=== PATIENT | male | born 1935 | race Caucasian/White ===

== ENCOUNTER 2018-05-05 18:40 | Emergency (ER) | END 2018-05-05 21:45 | disposition home or self-care (01) ==

== ENCOUNTER 2018-05-08 10:31 | Emergency (ER) | END 2018-05-08 11:52 | disposition home or self-care (01) ==

== ENCOUNTER 2018-11-16 21:46 | Emergency (ER) | payer MEDICARE, OTHER ==
[~2018-11-16] VITALS: Ht 162.6 cm; Wt 53.6 kg
[~2018-11-16 21:46] MED LIST: HYDR-4011 PO; IBUP-1561 PO
[2018-11-16 21:49] VITALS: Ht 162.6 cm; Wt 53.6 kg
--- NOTE | 2018-11-16 22:45 | ERD ---
ER Documentation Chief Complaint Chief Complaint R hand swelling/pain s/p injury x1 week ago HPI The patient is a 83-year-old male, presenting to the ER because of right wrist and right hand swollen, redness, painful for the last week after he fell. He denies any head injury, facial pain, neck pain, chest pain, dyspnea, abdominal pain, vomiting, dysuria. He does not smoke or drink Past medical history: Hypertension, chronic kidney disease, hypothyroidism, anemia Surgical history: None ROS All systems reviewed and are negative except as per history of present illness. Medications Home Meds Active Scripts Cephalexin* (Keflex*) 500 Mg Capsule, 500 MG PO QID for 7 Days, CAP Prov:CLAUDIA ALCALA MD 11/17/18 Reported Medications Docusate Sodium (Doc-Q-Lace) 100 Mg Capsule, 100 MG PO DAILY for 90 Days TAKE ONE CAPSULE BY MOUTH ONCE DAILY NEEDED 11/17/18 Losartan Potassium* (Losartan Potassium*) 100 Mg Tablet, 100 MG PO DAILY for 90 Days, #90 11/17/18 Amlodipine Besylate* (Amlodipine Besylate*) 10 Mg Tablet, 10 MG PO DAILY TAKE ONE TABLET BY MOUTH EVERY DAY 11/17/18 Levothyroxine Sodium* (Levothyroxine Sodium*) 25 Mcg Tablet, 25 MCG PO QAM TAKE ONE TABLET BY MOUTH EVERY MORNING ON AN EMPTY STOMACH 11/17/18 Ferrous Sulfate* (Ferrous Sulfate*) 325 Mg Tabec, 325 MG PO BID TAKE ONE TABLET BY MOUTH TWICE DAILY 11/17/18 Discontinued Scripts Hydrocodone/Acetaminophen ([place] 5-325 Tablet) 1 Each Tablet, 1 TAB PO Q6H PRN for PAIN, #7 TAB Prov:MIKEY,LORENZA C 05/05/18 Ibuprofen* (Motrin*) 400 Mg Tab, 400 MG PO Q6, #30 TAB Prov:MIKEY,LORENZA C 05/05/18 Allergies Allergies: Coded Allergies: No Known Allergy (Unverified , 05/05/18) PMhx/Soc History of Surgery: No Anesthesia Reaction: No Hx Neurological Disorder: No Hx Respiratory Disorders: No Hx Cardiac Disorders: Yes (htn) Hx Psychiatric Problems: No Hx Miscellaneous Medical Probl: Yes (thyroid, kidney disease ) Hx Alcohol Use: No Hx Substance Use: No Hx Tobacco Use: No Smoking Status: Never smoker Physical Exam Vitals Vital Signs Date Temp Pulse Resp B/P (MAP) Pulse Ox O2 O2 Flow FiO2 Time Delivery Rate 11/16/18 98.8 93 17 123/63 98 21:49 (83) Physical Exam Const: No acute distress. Head: Atraumatic. Eyes: Normal Conjunctiva. ENT: Normal External Ears, Nose and Mouth. Neck: Full range of motion. No meningismus. Resp: Clear to auscultation bilaterally. Cardio: Regular rate and rhythm. Abd: Soft, non distended, normal bowel sounds, non tender. Skin: No petechiae or rashes. Back: No midline or flank tenderness. Ext: Right hand is edematous and erythematous, no crepitus, no ecchymosis, minimally warm to touch, right wrist with minimal tenderness, no ecchymosis, no point tenderness Neur: Awake and alert. No focal deficit Psych: Normal Mood and Affect. Procedures/MDM [place] [address] Radiology Main Line: [phone] DIAGNOSTIC IMAGING REPORT Patient: MAGDALENO GALICIA : 1935 Age: 83 Sex: M MR #: [id number] DOS: 11/16/18 2236 Ordering MD: CLAUDIA ALCALA MD Location: E/R Room/Bed: PROCEDURE: XR Hand. CLINICAL INDICATION: pain TECHNIQUE: AP oblique and lateral of the right hand were obtained. COMPARISON: No prior studies are available for comparison. FINDINGS: There is subacute to chronic fracture with sclerosis and smoothing of the edges at the proximal phalanx second ray. There is probable fracture deformity with foreshortening of the fifth metacarpal and mild volar angulation. Hooked osteophytes are most conspicuous at the second and third metacarpal head and neck junctions There is extensive soft tissue edema overlying the dorsum of the metacarpals. Chronic fracture deformity is again identified at the distal shaft of the ulna. IMPRESSION: Subacute to chronic appearance of fracture in the proximal phalanx second ray. Additional clinical correlation for prior trauma history and physical examination is recommended to confirm the chronicity of these findings. Chronic fracture deformity and volar angulation of the fifth metacarpal. Again, clinical correlation with prior trauma history is recommended. Hooked osteophytes of the second and third metacarpal head/neck junctions. 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 Extensive soft tissue edema of the dorsum of the hand. RPTAT: EE Jael Chavarria Physician Date Time Electronically viewed and signed by Jael Chavarria Physician on 11/17/2018 00:12 BP/ CC: CLAUDIA ALCALA MD [id number] [place] [address] Radiology Main Line: [phone] DIAGNOSTIC IMAGING REPORT Patient: MAGDALENO GALICIA : 1935 Age: 83 Sex: M MR #: [id number] DOS: 11/16/186 Ordering MD: CLAUDIA ALCALA MD Location: E/R Room/Bed: PROCEDURE: XR Wrist. CLINICAL INDICATION: pain TECHNIQUE: AP, lateral and oblique views of the right wrist were performed. COMPARISON: No prior studies are available for comparison. FINDINGS: There is deformity of the distal shaft of the ulna, consistent with chronic healed fracture. There is joint space narrowing at the radiocarpal joint with subchondral sclerosis. There is spurring of the dorsal aspect of lunate. No acute displaced fracture or subluxation identified. Vascular calcifications are present along the medial soft tissues. Hooked osteophytes are identified in the second and third metacarpal head and neck junctions, which will be further described in the separate hand radiograph report. IMPRESSION: 1. Chronic healed fracture deformity of the distal shaft ulna. 2. Degenerative changes including joint space narrowing of the radiocarpal joint and subchondral sclerosis. Spurring of the dorsal aspect of the lunate. 3. Vascular calcifications. 4. No radiographic evidence of acute displaced fracture or malalignment of the right wrist. RPTAT: EE Physician [place] Date Time Electronically viewed and signed by Jael Chavarria Physician on 11/17/2018 00:02 BP/ CC: CLAUDIA ALCALA MD [id number] MEDICAL MAKING DECISION: The patient is a 83-year-old male, presenting with acute right hand cellulitis, old fracture of the index finger. He was treated with right wrist velcro and is stable for outpatient follow-up The differential diagnoses considered include but are not limited to cellulitis, abscess, contusion, sprain, strain, internal derangement, fracture Departure Diagnosis: Primary Impression: Cellulitis Condition: Good Comments I discussed the findings with the patient. I advised the patient to follow-up with the primary physician in about 2-3 days, sooner if needed and return if any concern. Disclaimer: Inadvertent spelling and grammatical errors are likely due to EHR/dictation software use and do not reflect on the overall quality of patient care. Also, please note that the electronic time recorded on this note does not necessarily reflect the actual time of the patient encounter. CLAUDIA ALCALA MD Nov 16, 2018 22:45
[2018-11-17] MEDS ORDERED: DOCU-211 PO (00:04)
[2018-11-17] MEDS ORDERED: FER325 PO (00:04)
[2018-11-17] MEDS ORDERED: LOSA100T15 PO (00:04)
[2018-11-17] MEDS ORDERED: AMLO-147 PO (00:04)
[2018-11-17] MEDS ORDERED: LEVO25TA6 PO (00:04)
[2018-11-17] MEDS ORDERED: CEPH-443 PO (00:24)
[2018-11-17 00:36] VITALS: BP 136/69; PULSE 71; RESP 13
== END 2018-11-17 00:37 | disposition home or self-care (01) ==
LOC: E/R 21:46
DX: L03.113 Cellulitis of right upper limb (principal); R40.2142 Coma scale, eyes open, spontaneous, at arrival to emergency department; R40.2252 Coma scale, best verbal response, oriented, at arrival to emergency department; R40.2362 Coma scale, best motor response, obeys commands, at arrival to emergency department; I12.9 Hypertensive chronic kidney disease with stage 1 through stage 4 chronic kidney disease, or unspecified chronic kidney disease; N18.9 Chronic kidney disease, unspecified; E03.9 Hypothyroidism, unspecified